=== PATIENT | male | born 1985 | race American Indian/Alaskan Native ===

== ENCOUNTER 2022-12-03 09:21 | Outpatient (CLI) | payer OTHER | END 2022-12-03 19:56 | disposition home or self-care (01) | LOC: US 09:21 | PROVIDERS: ATTEND Nurse Practitioner Family | DX: K21.9 Gastro-esophageal reflux disease without esophagitis (principal); R10.816 Epigastric abdominal tenderness | CPT/HCPCS: 93005 ==